=== PATIENT | female | born 1985 | race Two or more races ===

== ENCOUNTER 2019-06-01 10:20 | Inpatient (IN) | payer OTHER ==
[~2019-06-01] VITALS: Ht 160 cm; Wt 79.4 kg
[2019-07-01] MEDS ORDERED: PRENATAL TABLE1 EAC1 PO (06:29)
[2019-07-01] MEDS ORDERED: LEVOTHYROXINE25 MCG PO (06:30)
== END 2019-07-03 11:51 | disposition home or self-care (01) | DRG 788 ==
LOC: LDR 06-25 11:30 → SURG 06-25 11:30 → LDR 07-01 05:41 → OB/GYN 07-01 20:35
PROVIDERS: ADMIT Obstetrics & Gynecology
PROC: 3E033VJ Introduction of Other Hormone into Peripheral Vein, Percutaneous Approach (ICD-10-PCS; 2019-07-01)
PROC: 4A1HXCZ Monitoring of Products of Conception, Cardiac Rate, External Approach (ICD-10-PCS; 2019-07-01)
PROC: 10D00Z1 Extraction of Products of Conception, Low, Open Approach (ICD-10-PCS; principal; 2019-07-01 19:00)
DX: O76 Abnormality in fetal heart rate and rhythm complicating labor and delivery (principal); O62.0 Primary inadequate contractions; Z3A.40 40 weeks gestation of pregnancy; Z37.0 Single live birth

== ENCOUNTER 2019-06-15 13:01 | Outpatient (CLI) | payer OTHER | END 2019-06-15 14:26 | disposition home or self-care (01) | LOC: NST 13:01 | DX: Z34.83 Encounter for supervision of other normal pregnancy, third trimester (principal) ==

== ENCOUNTER 2019-06-22 10:44 | Outpatient (CLI) | payer OTHER | END 2019-06-22 13:14 | disposition home or self-care (01) | LOC: NST 10:44 | DX: Z34.83 Encounter for supervision of other normal pregnancy, third trimester (principal) ==

== ENCOUNTER 2019-06-26 08:35 | Outpatient (CLI) | payer OTHER | END 2019-06-26 09:52 | disposition home or self-care (01) | LOC: NST 08:35 | DX: Z34.83 Encounter for supervision of other normal pregnancy, third trimester (principal) ==

== ENCOUNTER 2019-06-30 08:34 | Outpatient (CLI) | payer OTHER ==
[2019-07-01] MEDS ORDERED: PRENATAL TABLE1 EAC1 PO (06:29)
[2019-07-01] MEDS ORDERED: LEVOTHYROXINE25 MCG PO (06:30)
== END 2019-06-30 09:36 | disposition home or self-care (01) ==
LOC: NST 08:34
DX: O09.73 Supervision of high risk pregnancy due to social problems, third trimester (principal)